=== PATIENT | female | born 1990 | race Hispanic/Latino ===

== ENCOUNTER 2017-01-12 07:53 | Inpatient (IN) | payer OTHER ==
[~2017-01-12] VITALS: Ht 154.9 cm; Wt 65.0 kg
[2017-01-12] VITALS (38 sets, daily range): BP systolic 105–128; BP diastolic 57–97
[~2017-01-12 07:53] MED LIST: AMOXICILLIN500 MG PO; Ambien PO; CHROMAGEN,1 CAPSULE PO; COLACE100 MG PO; CORTISPORIN-TC10 M1 LEFT EAR; MOBIC7.5 MG PO; MOTRIN600 MG PO; MOTRIN800 MG PO; NATALCARE RX1 TABLE1 PO; PRENATAL TABLE1 EAC3 PO; PSEUDOEPHEDRINE30 MG PO; ~No Medications
[2017-01-12 10:09] LABS: EOSINOPHIL (%) 0.6 % (0-5); EOSINOPHIL COUNT 0.1 K/uL (0-0.3); HEMATOCRIT 31.6 % (36.0-46.0); IMMATURE GRANULOCYTE (%) 0.3 % (0.0-0.7); LYMPHOCYTE COUNT 2.1 K/uL (1.0-2.8); MCHC 30.7 G/DL (30.0-36.0); MCV 78.2 FL (83-99); MEAN PLAT.VOLUME 9.9 uM^3 (9.5-12.4); MONOCYTE (%) 5.2 % (3-12); MONOCYTE COUNT 0.5 K/uL (0-0.8); NEUTROPHIL (%) 72.2 % (45-76); PLATELET COUNT 203 K/uL (156-360); RBC DIS.WIDTH-CV 15.3 % (11.8-14.6); RBC DIS.WIDTH-SD 43.6 % (39-53); RED BLOOD COUNT 4.04 M/uL (3.80-5.20); WHITE BLOOD COUNT 9.6 K/uL (4.1-10.2)
[2017-01-13 07:03] LABS: EOSINOPHIL (%) 0.1 % (0-5); HEMATOCRIT 31.8 % (36.0-46.0); IMMATURE GRANULOCYTE (%) 0.3 % (0.0-0.7); LYMPHOCYTE COUNT 2.3 K/uL (1.0-2.8); MCH 23.7 PG (29.0-34.0); MCHC 30.5 G/DL (30.0-36.0); MCV 77.6 FL (83-99); MEAN PLAT.VOLUME 9.9 uM^3 (9.5-12.4); MONOCYTE (%) 6.1 % (3-12); MONOCYTE COUNT 0.9 K/uL (0-0.8); NEUTROPHIL (%) 77.6 % (45-76); NEUTROPHIL COUNT 11.4 K/uL (1.8-6.4); PLATELET COUNT 203 K/uL (156-360); RBC DIS.WIDTH-CV 15.4 % (11.8-14.6); RBC DIS.WIDTH-SD 43.2 % (39-53)
[2017-01-13 07:13] LABS: WHITE BLOOD COUNT 14.7 K/uL (4.1-10.2)
[2017-01-13 07:38] VITALS: BP 128/73
[2017-01-13 14:58] VITALS: BP 135/76
[2017-01-13 21:58] VITALS: BP 132/74
[2017-01-14 07:53] VITALS: BP 131/79
[2017-01-14] MEDS ORDERED: IBUPROFEN800 MG PO (11:27)
== END 2017-01-14 12:40 | disposition home or self-care (01) | DRG 775 ==
LOC: LDRP-OP → 2WEST 07:54 → LDRP-OP 08:56 → 2WEST 19:59 → LDRP-OP 02-19 15:31
PROVIDERS: Advanced Practice Midwife
PROC: 3E033VJ Introduction of Other Hormone into Peripheral Vein, Percutaneous Approach (ICD-10-PCS; principal; 2017-01-12)
PROC: 10907ZC Drainage of Amniotic Fluid, Therapeutic from Products of Conception, Via Natural or Artificial Opening (ICD-10-PCS; principal; 2017-01-12)
PROC: 10E0XZZ Delivery of Products of Conception, External Approach (ICD-10-PCS; 2017-01-12)
PROC: 3E0S3CZ (ICD-10-PCS; 2017-01-12)
PROC: 00HU33Z Insertion of Infusion Device into Spinal Canal, Percutaneous Approach (ICD-10-PCS; 2017-01-12)
DX: O99.02 Anemia complicating childbirth (principal); O69.1XX0 Labor and delivery complicated by cord around neck, with compression, not applicable or unspecified; O99.824 Streptococcus B carrier state complicating childbirth; Z3A.39 39 weeks gestation of pregnancy; Z37.0 Single live birth; D50.9 Iron deficiency anemia, unspecified
CPT/HCPCS: 82247; 82248; 85025; C1755; J1050; J2540; J2765; J3010; J7120

== ENCOUNTER 2017-04-01 09:58 | Day surgery (SDC) | payer OTHER ==
[~2017-04-01] VITALS: Ht 154.9 cm; Wt 55.5 kg
[~2017-04-01 09:58] MED LIST changes: +DEPO-PROVER150 MG/ML IM; +IBUPROFEN800 MG PO; +PRENATAL TABLE1 EACH PO
[2017-04-01 10:23] VITALS: BP 123/75
[2017-04-01] MEDS ORDERED: PERCOCET 5/31 TABLET PO (13:06)
[2017-04-01 13:56] VITALS: BP 118/75
[2017-04-01 15:00] VITALS: BP 112/75
== END 2017-04-01 17:04 | disposition home or self-care (01) ==
LOC: SDC 09:58
PROC: 0UL74DZ Occlusion of Bilateral Fallopian Tubes with Intraluminal Device, Percutaneous Endoscopic Approach (ICD-10-PCS; principal; 2017-04-01)
DX: Z30.2 Encounter for sterilization (principal); Z82.49 Family history of ischemic heart disease and other diseases of the circulatory system; Z80.1 Family history of malignant neoplasm of trachea, bronchus and lung; Z83.49 Family history of other endocrine, nutritional and metabolic diseases
CPT/HCPCS: J0690; J1100; J1885; J2405; J2765; J3010